=== PATIENT | male | born 1965 | race Caucasian/White ===

== ENCOUNTER → 2019-10-29 09:36 | Outpatient (BNVA) | payer BC, SELFPAY | PROVIDERS: Referring Provider Nurse Practitioner Family; Visit Provider Specialist | DX: M79.672 Pain in left foot (principal); M79.671 Pain in right foot; R29.90 Unspecified symptoms and signs involving the nervous system; R20.0 Anesthesia of skin | CPT/HCPCS: 95909 ==

== ENCOUNTER → 2019-11-10 09:22 | Outpatient (BNVA) | payer BC, SELFPAY | PROVIDERS: Visit Provider Nurse Practitioner Family | DX: I73.9 Peripheral vascular disease, unspecified (principal) | CPT/HCPCS: 80048; 80061; 85025 ==

== ENCOUNTER 2019-12-12 07:47 | Outpatient (CLI) | payer BC, SELFPAY ==
--- NOTE | 2019-12-12 08:00 | USCV_ITS ---
Sadie Baca Age: 54 Gender: M : 1965 Exam Date: 12/12/2019 08:04 Ordering Phys: Mady Mukherjee Technologist: Edith Ibrahim [place] [facility] [place]: DISORDER OF CAROTID ARTERY Risk Factors: Previous Vascular Surgery: None Right Brachial BP: / Left Brachial BP: / Right Left Velocity (cm/s) Spectral Plaque Velocity (cm/s) Spectral Plaque Syst/Diast Broadening Syst/Diast Broadening 59.80/ 8.40 Prox CCA 80.60 / 23.30 69.50/ 22.30 Mid CCA 82.40 / 26.90 61.80/ 17.20 Distal CCA 65.40 / 25.10 52.00/ 22.90 Prox ICA 60.90 / 17.10 47.90/ 18.05 Mid ICA 51.90 / 24.20 62.50/ 25.70 Distal ICA 54.40 / 25.60 90.90 ECA 106.80 0.90 ICA/CCA 0.74 Antegrade Vertebral Antegrade 20.80/ 5.90 cm/s 36.10/ 15.30 cm/s Tri Subclavian Tri 88.60 67.30 FINDINGS Comparison: none available. No significant elevation of systolic or diastolic velocities. Waveforms are normal. Minimal right bifurcation atherosclerosis. Bilateral antegrade vertebral arteries. CONCLUSIONS Bilateral ICA stenosis less than 50%. No stenosis, mild right carotid atherosclerosis. Dr. Marie Haider DO (Electronically Signed) Final Date: 12 December 2019 09:38 S
== END 2019-12-12 07:48 | disposition home or self-care (01) ==
LOC: RADWPI 07:52
PROVIDERS: Family Provider Nurse Practitioner Family; PCP Nurse Practitioner Family; Visit Provider Nurse Practitioner Family
DX: I73.9 Peripheral vascular disease, unspecified (principal); I65.23 Occlusion and stenosis of bilateral carotid arteries
CPT/HCPCS: 93880

== ENCOUNTER → 2019-12-16 17:00 | Outpatient (BNVA) | payer BC, SELFPAY | PROVIDERS: Family Provider Nurse Practitioner Family; PCP Nurse Practitioner Family; Visit Provider Nurse Practitioner Family | DX: R20.0 Anesthesia of skin (principal); R20.2 Paresthesia of skin | CPT/HCPCS: 82306; 82607 ==

== ENCOUNTER 2020-01-27 11:06 | Outpatient (CLI) | payer BC, SELFPAY ==
--- NOTE | 2020-01-27 11:16 | XRR_ITS ---
PROCEDURE INFORMATION: Exam: XR Chest, 2 Views Exam date and time: 01/27/2020 11:23 AM Age: 54 years old Clinical indication: Dyspnea; Additional info: Dyspnea x 3 months TECHNIQUE: Imaging protocol: XR of the chest Views: 2 views. COMPARISON: No relevant prior studies available. FINDINGS: Lungs: Unremarkable. No consolidation. Pleural space: Unremarkable. No pleural effusion. No pneumothorax. Heart/Mediastinum: Unremarkable. No cardiomegaly. Bones/joints: Unremarkable. XR/XR chest 2V* [id number] IMPRESSION: No acute findings.
--- NOTE | 2020-01-27 11:30 | CT_ITS ---
WS: [id number] CT CHEST ANGIOGRAPHY WITH REFORMATS HISTORY: DYSPNEA TECHNIQUE: Contiguous axial images are obtained through the chest during arterial injection of intrav enous contrast. Images are reconstructed to evaluate the pulmonary arteries. MIP imaging also reviewe d. All CT scans at [facility] use at least one of these dose optimization techniques: aut omated exposure control; mA and/or kV adjustment per patient size (includes targeted exams where dose is matched to clinical indication); or iterative reconstruction. CONTRAST: Omnipaque 350; 95 mL IV. DLP: 545.45 mGy.cm COMPARISON: None available. Adequate opacification of the pulmonary arteries. There is significant beam hardening artifact throug h the mid thorax and proximal pulmonary arteries. Cannot confirm pulmonary embolism on this examinati on. Pulmonary artery size is normal. There is mild atherosclerosis of aorta. Normal size heart. No pe ricardial or pleural effusion. Lungs are slightly hyperexpanded. Mild thickening of the distal interstitium. No mass or pulmonary no dule. Subsegmental atelectasis in the RIGHT middle lobe and at the lingula. Mediastinal and hilar ind eterminate lymph nodes. Some of these lymph nodes contain benign calcifications. Largest lymph node i s 10 mm in the subcarina. Mild hepatic steatosis. Small hiatal hernia. Prior bilateral axillary rojas dissections. Increase in thoracic kyphosis with degenerative disc disease. No osteoblastic or osteolytic bone dise ase. CT/CT angio chest PE protcl [id number] IMPRESSION: 1. No large pulmonary embolism. Injection bolus is slightly suboptimal. No pul monary embolism identified. 2. Subsegmental areas of atelectasis in the lingula and RIGHT middle lobe. 3. Indeterminate mediastinal and hilar lymphadenopathy. May be reactive. Recom mend follow-up chest CT in 3 months to confirm no progression. 4. Small hiatal hernia. 5. No pneumonia.
[2020-01-27] MEDS: iohexol 350 mg/mL 100 mL Btl IV (12:25)
== END 2020-01-27 11:07 | disposition home or self-care (01) ==
LOC: RAD 11:09
PROVIDERS: PCP Nurse Practitioner Family; Visit Provider Nurse Practitioner Family
DX: R06.00 Dyspnea, unspecified (principal); J98.11 Atelectasis; R59.1 Generalized enlarged lymph nodes; K44.9 Diaphragmatic hernia without obstruction or gangrene
CPT/HCPCS: 71046; 71275

== ENCOUNTER 2020-02-15 15:22 | Emergency (ER) | payer BC, SELFPAY ==
[2020-02-15 15:41] VITALS: BP 120/96; PULSE 73; RESP 17; TEMP 36.7; O2SAT 97; BMI 27.6
--- NOTE | 2020-02-15 16:03 | USR_ITS ---
PROCEDURE INFORMATION: Exam: US Duplex Left Lower Extremity Veins, Limited Exam date and time: 02/15/2020 4:04 PM Age: 54 years old Clinical indication: Swelling (edema) of limb; Lower extremity, left; Additional info: Dvt TECHNIQUE: Imaging protocol: Real-time Duplex ultrasound of the Left Lower Extremity with 2-D carranza scale, color Doppler flow and spectral waveform analysis with image documentation. Limited exam focused on the left lower extremity veins. COMPARISON: No relevant prior studies available. FINDINGS: Left deep veins: Unremarkable. The common femoral, femoral, proximal profunda femoral, popliteal, posterior tibial and peroneal veins are patent without thrombus. Normal compressibility, augmentation response and Doppler waveforms. Left superficial veins: Unremarkable. Saphenofemoral junction is patent without thrombus. Soft tissues: Unremarkable. US/CV venous duplex [facility] [id number] IMPRESSION: No sonographic evidence of deep vein thrombosis.
--- NOTE | 2020-02-15 16:04 | W.ED.GENADLT ---
HPI - General Adult General: Chief complaint: General Medical Stated complaint: l foot & hand swelling Time Seen by Provider: 02/15/20 15:47 History of Present Illness: HPI narrative: Patient complains of pain and swelling to the left lower extremity. No history of injury. Patient has seen his primary care physician for this problem. Was diagnosed with neuropathy but then another physician told the patient that he did not have neuropathy patient has a history of DVTs and pulmonary emboli. Onset (ago): unknown Location: left and lower extremity Radiation: non-radiation Severity: severe and similar to prior episodes Quality: burning, stabbing and aching Pain Consistency: constant Relieving factors: none Exacerbating factors: movement Review of Systems General: Reports: 10 or more systems reviewed and unremarkable except in HPI and below PFSH ED PFSH: Social History Smoking and tobacco status: never smoked Physical Exam Const: COMMON NORMALS: no acute distress, healthy appearing and well nourished GENERAL APPEARANCE: cooperative and well developed HENMT: COMMON NORMALS: normocephalic and atraumatic HEAD & SCALP: normal to inspection, normocephalic and atraumatic Eye: GENERAL EYE: appearance normal, both eyes and all related structures Neck/C-Spine: COMMON NORMALS: full ROM, no lymphadenopathy and no meningeal signs GENERAL: Yes normal visual inspection CERVICAL SPINE: Yes cervical ROM normal and Yes normal cervical lordosis Chest: COMMONS NORMALS: normal inspection of the chest and normal palpation of entire chest wall Resp: COMMON NORMALS: normal respiratory effort, clear to auscultation bilaterally and percussion normal AUSCULTATION: clear to auscultation bilaterally PERCUSSION: percussion normal Cardio: COMMON NORMALS: regular rate, regular rhythm, S1 normal heart sound present and S2 normal heart sound present JUGULAR VENOUS DISTENTION: no JVD PALPATION: normal PMI RATE: regular rate RHYTHM: regular rhythm HEART SOUNDS: S1 normal heart sound present and S2 normal heart sound present GI: COMMON NORMALS: Soft to palpation and No hepatosplenomegaly present INSPECTION: Yes normal to inspection PALPATION: Yes Soft to palpation and Yes No hepatosplenomegaly present PERCUSSION: normal to percussion : COMMON NORMALS: Yes no CVA tenderness BLADDER/KIDNEY EXAM: Yes no CVA tenderness Back/Pelvis: COMMON NORMALS: no CVA tenderness, thoracic and lumbar spine normal to inspection and thoraco-lumbar ROM normal Extremity: COMMON NORMALS: full ROM and capillary refill normal GENERAL: No clubbing, No cyanosis, Yes edema, No mottling, No pallor, No pulses abnormal and No weight-bearing difficulty Neuro: MENINGEAL SIGNS: Yes no meningeal signs Skin: COMMON NORMALS: no rashes or lesions noted, no wounds and turgor normal GENERAL SKIN EXAM: no rashes or lesions noted, elasticity normal and turgor normal LESIONS: no lesions RASHES: no rashes TRAUMA: no lacerations or abrasions HAIR: normal NAILS: normal Course Vital Signs: Vital signs: Vital Signs Temperature 98.1 F 02/15/20 15:41 Pulse Rate 73 02/15/20 15:41 Respiratory Rate 17 02/15/20 15:41 Blood Pressure 120/96 02/15/20 15:41 Pulse Oximetry 97 02/15/20 15:41 Discharge Plan Discharge Patient Disposition: Home, Self-Care Clinical Impression: Plantar fasciitis Neuropathy of foot Qualifiers: Laterality: left Qualified Code(s): G57.92 - Unspecified mononeuropathy of left lower limb Condition: Stable Prescriptions: No Action pantoprazole 40 mg tablet,delayed release (DR/EC) 40 mg PO DAILY Qty: 90 RF: 1 gabapentin 100 mg capsule 200 mg PO TID Qty: 180 RF: 2 Xarelto 20 mg tablet 20 mg PO DAILY Qty: 90 RF: 1 Discharge Orders: Discharge Order (Routine); Ordered 02/15/20 Ordered By: Satnam Luna Referrals: Mady Mukherjee FNP [Primary Care Provider] - Jarad Escobedo DPM [Physician] - Coding Level of Care Code ED Optician Apprentice for Chg Fwd Exam Comprehensive
[2020-02-15 16:59] VITALS: BP 119/83; PULSE 69; RESP 15; O2SAT 98
--- NOTE | 2020-02-17 11:03 | DCPLANNER ---
marketing services manager had message to schedule a follow up appointment for patient with ortho. marketing services manager called the ortho clinic, spoke with Pat, gave clinic patients information. marketing services manager was told that patients information would be printed and reviewed. Clinic will call insurance case manager and patient with appointment information.
--- NOTE | 2020-02-18 15:45 | DCPLANNER ---
Patient has a follow up appointment scheduled for Sunday, March 03, 2020 at 10:00 with . Clinic will call patient with appointment information.
--- NOTE | 2020-03-04 10:45 | DCPLANNER ---
Patient did attend appointment scheduled for 03.03.20 with ortho.
== END 2020-02-15 16:59 | disposition home or self-care (01) ==
PROVIDERS: Emergency Provider Family Medicine; PCP Nurse Practitioner Family
DX: M72.2 Plantar fascial fibromatosis (principal); G57.92 Unspecified mononeuropathy of left lower limb
CPT/HCPCS: 12345; 93971; 99281; 99283

== ENCOUNTER → 2020-02-19 14:22 | Outpatient (BNVA) | payer BC, SELFPAY | PROVIDERS: PCP Nurse Practitioner Family; Visit Provider Internal Medicine Rheumatology | DX: M15.8 Other polyosteoarthritis (principal); Z79.899 Other long term (current) drug therapy; Z11.59 Encounter for screening for other viral diseases; Z11.1 Encounter for screening for respiratory tuberculosis; R21 Rash and other nonspecific skin eruption; Z85.820 Personal history of malignant melanoma of skin; R76.8 Other specified abnormal immunological findings in serum | CPT/HCPCS: 36415; 80076; 81001; 82306; 82565; 82570; 84156; 85025; 85651; 86140; 86160; 86431; 86480; 86704; 86803; 87340; 99204 ==

== ENCOUNTER → 2020-03-03 10:17 | Outpatient (BNVA) | payer BC, SELFPAY | PROVIDERS: PCP Nurse Practitioner Family; Referring Provider Family Medicine; Visit Provider Podiatrist Foot & Ankle Surgery | DX: M79.671 Pain in right foot (principal); M79.672 Pain in left foot | CPT/HCPCS: 73630 ==

== ENCOUNTER 2020-03-03 11:52 | Outpatient (CLI) | payer BC, SELFPAY ==
--- NOTE | 2020-03-03 11:59 | XR_ITS ---
WS: [id number] RIGHT HAND: 3 VIEW(S) TECHNIQUE: PA, oblique and lateral. HISTORY: inflammatory arthritis COMPARISON: None available. No acute fracture or dislocation. Mild interphalangeal joint space narrowing. No osteopenia. No erosions. Ulnar styloid is negative. XR/XR hand RT min 3V* [id number] IMPRESSION: Mild osteoarthritis. No inflammatory erosions.
--- NOTE | 2020-03-03 11:59 | XR_ITS ---
WS: [id number] LEFT HAND: 3 VIEW(S) TECHNIQUE: PA, oblique and lateral. HISTORY: inflammatory arthritis COMPARISON: None available. No acute fracture or dislocation. Prior screw fixation proximal fourth phalanx. Healed fracture in good alignment. No erosions. XR/XR hand LT min 3V* [id number] IMPRESSION: Negative LEFT hand for inflammatory arthropathy.
== END 2020-03-03 11:53 | disposition home or self-care (01) ==
LOC: RADWPI 11:56
PROVIDERS: Family Provider Nurse Practitioner Family; PCP Nurse Practitioner Family; Visit Provider Internal Medicine Rheumatology
DX: M19.90 Unspecified osteoarthritis, unspecified site (principal); Z79.899 Other long term (current) drug therapy
CPT/HCPCS: 36415; 73130; 85025

== ENCOUNTER → 2020-04-05 09:04 | Outpatient (BNVA) | payer BC, SELFPAY | PROVIDERS: Family Provider Nurse Practitioner Family; PCP Nurse Practitioner Family; Visit Provider Internal Medicine Rheumatology | DX: M05.79 Rheumatoid arthritis with rheumatoid factor of multiple sites without organ or systems involvement (principal); Z79.899 Other long term (current) drug therapy; K21.9 Gastro-esophageal reflux disease without esophagitis; Z85.820 Personal history of malignant melanoma of skin; R76.8 Other specified abnormal immunological findings in serum; R21 Rash and other nonspecific skin eruption; R59.0 Localized enlarged lymph nodes; M19.041 Primary osteoarthritis, right hand; M19.042 Primary osteoarthritis, left hand; Z79.52 Long term (current) use of systemic steroids | CPT/HCPCS: 99214; G0463 ==

== ENCOUNTER → 2020-06-07 10:19 | Outpatient (BNVA) | payer BC, SELFPAY | PROVIDERS: Family Provider Nurse Practitioner Family; PCP Nurse Practitioner Family; Visit Provider Internal Medicine Rheumatology | DX: M05.79 Rheumatoid arthritis with rheumatoid factor of multiple sites without organ or systems involvement (principal); Z79.899 Other long term (current) drug therapy; R76.8 Other specified abnormal immunological findings in serum; R59.0 Localized enlarged lymph nodes; K21.9 Gastro-esophageal reflux disease without esophagitis; Z85.820 Personal history of malignant melanoma of skin; M19.041 Primary osteoarthritis, right hand; M19.042 Primary osteoarthritis, left hand; Z79.52 Long term (current) use of systemic steroids | CPT/HCPCS: 36415; 80076; 82565; 85025; 85651; 86140; 99215 ==

== ENCOUNTER → 2020-07-01 08:23 | Outpatient (BNVA) | payer BC, SELFPAY | PROVIDERS: Family Provider Nurse Practitioner Family; PCP Nurse Practitioner Family; Visit Provider Nurse Practitioner Family | DX: Z12.5 Encounter for screening for malignant neoplasm of prostate (principal); E78.5 Hyperlipidemia, unspecified; Z79.899 Other long term (current) drug therapy; Z23 Encounter for immunization | CPT/HCPCS: 80053; 80061; G0103 ==

== ENCOUNTER → 2020-09-30 13:00 | Outpatient (BNVA) | payer OTHER, SELFPAY | PROVIDERS: Family Provider Nurse Practitioner Family; PCP Nurse Practitioner Family; Visit Provider Internal Medicine Rheumatology | DX: M05.79 Rheumatoid arthritis with rheumatoid factor of multiple sites without organ or systems involvement (principal); R76.8 Other specified abnormal immunological findings in serum; Z79.899 Other long term (current) drug therapy; L93.1 Subacute cutaneous lupus erythematosus; R59.0 Localized enlarged lymph nodes; Z85.820 Personal history of malignant melanoma of skin | CPT/HCPCS: 36415; 80076; 81001; 82565; 82570; 84156; 85025; 85651; 86140; 86160; 99214 ==

== ENCOUNTER → 2020-10-28 08:08 | Outpatient (BNVA) | payer OTHER, SELFPAY | PROVIDERS: Family Provider Nurse Practitioner Family; PCP Nurse Practitioner Family; Visit Provider Dermatology | DX: Z13.6 Encounter for screening for cardiovascular disorders (principal) | CPT/HCPCS: 80061; 82947; 83036 ==

== ENCOUNTER → 2021-01-05 08:50 | Outpatient (BNVA) | payer BC, SELFPAY | PROVIDERS: Family Provider Nurse Practitioner Family; PCP Nurse Practitioner Family; Visit Provider Internal Medicine Rheumatology | DX: L93.1 Subacute cutaneous lupus erythematosus (principal); M05.79 Rheumatoid arthritis with rheumatoid factor of multiple sites without organ or systems involvement; R76.8 Other specified abnormal immunological findings in serum; Z79.899 Other long term (current) drug therapy; K21.9 Gastro-esophageal reflux disease without esophagitis; Z85.820 Personal history of malignant melanoma of skin | CPT/HCPCS: 36415; 99214 ==

== ENCOUNTER → 2021-05-23 14:50 | Outpatient (BNVA) | payer BC, SELFPAY | PROVIDERS: Family Provider Nurse Practitioner Family; PCP Nurse Practitioner Family; Visit Provider Internal Medicine Rheumatology | DX: R76.8 Other specified abnormal immunological findings in serum (principal); L93.1 Subacute cutaneous lupus erythematosus; M05.79 Rheumatoid arthritis with rheumatoid factor of multiple sites without organ or systems involvement; Z79.899 Other long term (current) drug therapy; K21.9 Gastro-esophageal reflux disease without esophagitis; M19.041 Primary osteoarthritis, right hand; M19.042 Primary osteoarthritis, left hand; Z85.820 Personal history of malignant melanoma of skin | CPT/HCPCS: 99214 ==

== ENCOUNTER → 2021-11-04 08:23 | Outpatient (BNVA) | payer BC, SELFPAY | PROVIDERS: Family Provider Nurse Practitioner Family; PCP Nurse Practitioner Family; Visit Provider Internal Medicine Rheumatology | DX: M05.79 Rheumatoid arthritis with rheumatoid factor of multiple sites without organ or systems involvement (principal); Z79.899 Other long term (current) drug therapy | CPT/HCPCS: 80076; 82565; 85025; 86140 ==

== ENCOUNTER → 2022-06-26 16:31 | Outpatient (BNVA) | payer BC, SELFPAY | PROVIDERS: Family Provider Nurse Practitioner Family; PCP Nurse Practitioner Family; Visit Provider Nurse Practitioner Family | DX: Z12.5 Encounter for screening for malignant neoplasm of prostate (principal); Z79.899 Other long term (current) drug therapy; R21 Rash and other nonspecific skin eruption; L93.1 Subacute cutaneous lupus erythematosus; R74.8 Abnormal levels of other serum enzymes; Z00.00 Encounter for general adult medical examination without abnormal findings; Z79.01 Long term (current) use of anticoagulants | CPT/HCPCS: 80053; 85025; G0103 ==

== ENCOUNTER → 2023-01-02 10:26 | Outpatient (BNVA) | payer BC, SELFPAY | PROVIDERS: Family Provider Nurse Practitioner Family; PCP Nurse Practitioner Family; Visit Provider Internal Medicine Rheumatology | DX: L93.1 Subacute cutaneous lupus erythematosus (principal); M05.79 Rheumatoid arthritis with rheumatoid factor of multiple sites without organ or systems involvement; Z79.899 Other long term (current) drug therapy; Z85.820 Personal history of malignant melanoma of skin | CPT/HCPCS: 36415; 80076; 82565; 85025; 86140 ==

== ENCOUNTER → 2023-06-29 10:15 | Outpatient (BNVA) | payer BC, SELFPAY | PROVIDERS: Family Provider Nurse Practitioner Family; PCP Nurse Practitioner Family; Visit Provider Nurse Practitioner Family | DX: R53.83 Other fatigue (principal); Z12.5 Encounter for screening for malignant neoplasm of prostate; I10 Essential (primary) hypertension; E78.5 Hyperlipidemia, unspecified | CPT/HCPCS: 80053; 80061; 84403; 84439; 84443; 84481; 85025; G0103 ==

== ENCOUNTER → 2024-01-17 09:48 | Outpatient (BNVA) | payer OTHER, BC, MEDICAID, SELFPAY | PROVIDERS: Family Provider Nurse Practitioner Family; PCP Nurse Practitioner Family; Visit Provider Nurse Practitioner Family | DX: S41.101A Unspecified open wound of right upper arm, initial encounter; M05.79 Rheumatoid arthritis with rheumatoid factor of multiple sites without organ or systems involvement; Z79.899 Other long term (current) drug therapy; X58.XXXA Exposure to other specified factors, initial encounter | CPT/HCPCS: 80053; 80076; 82550; 82565; 85025; 86140 ==

== ENCOUNTER → 2024-07-08 10:10 | Outpatient (BNVA) | payer OTHER, SELFPAY | PROVIDERS: Family Provider Nurse Practitioner Family; PCP Nurse Practitioner Family; Visit Provider Internal Medicine Rheumatology | DX: M05.79 Rheumatoid arthritis with rheumatoid factor of multiple sites without organ or systems involvement (principal); Z79.899 Other long term (current) drug therapy | CPT/HCPCS: 36415; 80076; 82565; 85025; 85651; 86140 ==

== ENCOUNTER → 2024-09-11 11:16 | Outpatient (BNVA) | payer OTHER, SELFPAY | PROVIDERS: Family Provider Nurse Practitioner Family; PCP Nurse Practitioner Family; Visit Provider Nurse Practitioner Family | DX: R21 Rash and other nonspecific skin eruption (principal); Z79.899 Other long term (current) drug therapy | CPT/HCPCS: 80053; 85025; 85651 ==

== ENCOUNTER → 2025-03-02 16:05 | Outpatient (BNVA) | payer OTHER, SELFPAY | PROVIDERS: Family Provider Nurse Practitioner Family; PCP Nurse Practitioner Family; Visit Provider Nurse Practitioner Family | DX: Z12.5 Encounter for screening for malignant neoplasm of prostate (principal) | CPT/HCPCS: G0103 ==